=== PATIENT | female | born 1985 | race Caucasian/White ===

== ENCOUNTER → 2020-03-07 | Outpatient (CLI) | payer MEDICAID ==
[~2020-03-07] MED LIST: MIRT30TA8 PO; RISP4TAB7 PO
== END | disposition home or self-care (01) ==
LOC: CARD DIAG 13:19
DX: Z79.899 Other long term (current) drug therapy (principal)
CPT/HCPCS: 93005

== ENCOUNTER 2021-11-27 06:42 | Emergency (ER) | payer MEDICAID ==
[~2021-11-27] VITALS: Ht 142.2 cm; Wt 78.2 kg
[~2021-11-27 06:42] MED LIST changes: +MIRT-88 PO; -MIRT30TA8 PO
[2021-11-27 06:49] VITALS: BP 139/85
[2021-11-27] MEDS ORDERED: TETR15DR26 OP (07:16)
[2021-11-27] MEDS ORDERED: BENZ1TAB7 PO (07:16)
== END 2021-11-27 08:16 | disposition home or self-care (01) ==
LOC: ER 06:44
DX: G24.5 Blepharospasm (principal); Z98.890 Other specified postprocedural states
CPT/HCPCS: 36415; 84443; 99283

== ENCOUNTER 2021-12-09 18:49 | Emergency (ER) | payer MEDICAID ==
[~2021-12-09] VITALS: Ht 147.3 cm; Wt 63.6 kg
[~2021-12-09 18:49] MED LIST changes: +BENZ1TAB7 PO; +TETR15DR26 OP
[2021-12-09 18:57] VITALS: BP 146/80
== END 2021-12-09 19:27 | disposition home or self-care (01) ==
LOC: ER 18:50
DX: F29 Unspecified psychosis not due to a substance or known physiological condition (principal); F31.9 Bipolar disorder, unspecified; F20.9 Schizophrenia, unspecified
CPT/HCPCS: 99281